=== PATIENT | female | born 1955 | race Asian ===

== ENCOUNTER 2017-08-26 23:09 | Emergency (ER) | payer BC ==
[2017-08-27] MEDS ORDERED: NORMAL SALINE 1000 ML 1,000 ML IV PRN (01:26)
--- NOTE | 2017-08-27 01:27 | ER Document Report ---
ED General - General Chief Complaint: High Blood Sugar Stated Complaint: BLOOD SUGAR PROBLEM Time Seen by Provider: 08/27/17 01:13 Mode of Arrival: Ambulatory Information source: Patient Notes: This is a 61-year-old female with a history of insulin requiring diabetes presenting to the emergency room with weakness, nausea, dizziness. She denies chest pain, abdominal pain. She denies any fever or chills or recent illnesses. Does state that she has had some pain with range of motion of the right shoulder for quite some time but that has not changed. TRAVEL OUTSIDE OF THE [place] IN LAST 30 DAYS: No - HPI Onset: Yesterday Onset/Duration: Gradual Quality of pain: No pain Severity: None Pain Level: Denies Associated symptoms: Nausea. denies: Chills, Diarrhea, Fever, Vomiting, Shortness of breath Exacerbated by: Denies Relieved by: Denies Similar symptoms previously: No Recently seen / treated by doctor: No - Related Data Allergies/Adverse Reactions: No Known Allergies Allergy (Unverified 08/26/17 23:15) Past Medical History - General Information source: Patient - Social History Smoking Status: Never Smoker Cigarette use (# per day): No Chew tobacco use (# tins/day): No Frequency of alcohol use: None Drug Abuse: None Lives with: Family Family History: None Patient has suicidal ideation: No Patient has homicidal ideation: No - Past Medical History Cardiac Medical History: Reports: None Pulmonary Medical History: Reports: None EENT Medical History: Reports: None Neurological Medical History: Reports: None Endocrine Medical History: Reports: Hx Diabetes Mellitus Type 2 Renal/ Medical History: Reports: None Malignancy Medical History: Reports: None GI Medical History: Reports: None Musculoskeltal Medical History: Reports None Skin Medical History: Reports None Psychiatric Medical History: Reports: None Infectious Medical History: Reports: None Surgical Hx: Negative Review of Systems - Review of Systems Constitutional: denies: Chills, Fever EENT: No symptoms reported Cardiovascular: No symptoms reported Respiratory: No symptoms reported Gastrointestinal: See HPI Genitourinary: No symptoms reported Female Genitourinary: No symptoms reported Musculoskeletal: No symptoms reported Skin: No symptoms reported Hematologic/Lymphatic: No symptoms reported Neurological/Psychological: No symptoms reported Physical Exam - Vital signs Vitals: Temp Pulse Resp BP Pulse Ox 97.6 F 69 16 122/84 95 08/26/17 23:26 08/26/17 23:26 08/26/17 23:26 08/26/17 23:26 08/26/17 23:26 Notes: Physical exam: GENERAL: 61-year-old female, alert and oriented 3, no acute distress HEAD: Atraumatic, normocephalic. EYES: Pupils equal round and reactive to light, extraocular movements intact, sclera anicteric, conjunctiva are normal. ENT: TMs normal, nares patent, oropharynx clear without exudates. Moist mucous membranes. NECK: Normal range of motion, supple without obvious mass or JVD. LUNGS: Breath sounds clear to auscultation bilaterally and equal. No wheezes rales or rhonchi. HEART: Regular rate and rhythm without murmurs, rubs or gallops. ABDOMEN: Soft, normoactive bowel sounds. No tenderness to palpation. No guarding, no rebound. No masses appreciated. EXTREMITIES: Normal range of motion, no pitting or edema. No clubbing or cyanosis. NEUROLOGICAL: Cranial nerves II through XII grossly intact. Normal speech, moving all extremities. PSYCH: Normal mood, normal affect. SKIN: Warm, Dry, normal turgor, no rashes or lesions noted. Course - Re-evaluation Re-evalutation: 08/27/17 02:55 Treated with IV fluids. Nausea has improved without the need for antibiotics. - Vital Signs Vital signs: Temp Pulse Resp BP Pulse Ox 97.6 F 69 16 122/84 97 08/26/17 23:26 08/26/17 23:26 08/26/17 23:26 08/26/17 23:26 08/27/17 02:15 - Laboratory Result Diagrams: 08/27/17 02:00 08/27/17 02:00 Laboratory results interpreted by me: 08/26/17 08/27/17 08/27/17 23:20 02:00 02:30 Glucose 281 H POC Glucose 350 H Urine Glucose (UA) >=500 H Ur Leukocyte Esterase SMALL H - EKG Interpretation by Me Rate: Normal Rhythm: NSR - EKG shows normal sinus rhythm with a ventricular rate of 60, no acute ST-T wave changes Discharge - Discharge Clinical Impression: Diabetes Condition: Stable Disposition: HOME, SELF-CARE Additional Instructions: As we discussed, urine test showed a possible early urine infection. We did send a urine culture which will tell us for sure. That usually comes back in 2 days and if it does come back positive for a urine infection, we will call you with a prescription for antibiotics. As far as the anemia studies and the white blood count: They were normal. The kidney function tests, liver function tests and electrolytes were all normal. Sugar was a little elevated at 281 and I would like you to bring a copy of today 's lab work with you when you see the primary care doctor. Rest, drink plenty of fluids, take Zofran for nausea. Return to the emergency room for vomiting, not tolerating fluids, abdominal pain or any concerns or getting worse. Also, I put the number for an orthopedic surgeon for the shoulder pain. Referrals: MILAGRO SMALLS DO [ACTIVE STAFF] - Follow up as needed (This is the number of the orthopedic doctor for the shoulder) ANDRE TO MD [Primary Care Provider] - Follow up in 3-5 days (Bring a copy of today's lab tests with you when you go see primary care doctor)
[2017-08-27] MEDS ORDERED: ONDANSETRON HCL INJ/PF 4 MG/2 ML SDV IV ONE (01:28)
[2017-08-27 02:21] LABS: ABSOLUTE BASOPHILS # (AUTO) 0.1 10^3/uL (0.0-0.2); ABSOLUTE EOSINOPHILS # (AUTO) 0.1 10^3/uL (0.0-0.6); ABSOLUTE LYMPHOCYTES (AUTO) 1.7 10^3/uL (0.5-4.7); ABSOLUTE MONOCYTES (AUTO) 0.3 10^3/uL (0.1-1.4); ABSOLUTE NEUT (AUTO) 5.4 10^3/uL (1.7-8.2); BASOPHILS % (AUTO) 0.7 % (0-2); EOSINOPHILS % (AUTO) 1.3 % (0-6); HEMATOCRIT 38.8 % (36.0-47.0); HEMOGLOBIN 13.4 g/dL (12.0-15.5); LYMPHOCYTES % (AUTO) 22.7 % (13-45); MEAN CORPUSCULAR HEMOGLOBIN 31.4 pg (27.0-33.4); MEAN CORPUSCULAR HGB CONC 34.5 g/dL (32.0-36.0); MEAN CORPUSCULAR VOLUME 91 fl (80-97); MONOCYTES % (AUTO) 4.4 % (3-13); PLATELET COUNT 257 10^3/uL (150-450); RED BLOOD COUNT 4.25 10^6/uL (3.72-5.28); RED CELL DISTRIBUTION WIDTH 11.9 % (11.5-14.0); SEGMENTED NEUTROPHILS % (AUTO) 70.9 % (42-78); TOTAL CELLS COUNTED % (AUTO) 100 %; WHITE BLOOD COUNT 7.6 10^3/uL (4.0-10.5)
[2017-08-27 02:27] LABS: ALANINE AMINOTRANSFERASE 32 U/L (9-52); ALKALINE PHOSPHATASE 70 U/L (38-126); ANION GAP 11 (5-19); ASPARTATE AMINO TRANSFERASE 17 U/L (14-36); BILIRUBIN,DIRECT 0.2 mg/dL (0.0-0.4); BILIRUBIN,TOTAL 0.3 mg/dL (0.2-1.3); BLOOD UREA NITROGEN 15 mg/dL (7-20); CALCIUM 9.7 mg/dL (8.4-10.2); CARBON DIOXIDE 30 mmol/L (22-30); CHLORIDE 103 mmol/L (98-107); CREATINE KINASE 93 U/L (30-135); GLUCOSE 281 mg/dL (75-110); POTASSIUM 4.5 mmol/L (3.6-5.0); SODIUM 143.8 mmol/L (137-145); TOTAL PROTEIN 6.4 g/dL (6.3-8.2)
[2017-08-27 02:38] LABS: CREATINE KINASE MB 1.08 ng/mL (<4.55)
[2017-08-27 02:45] LABS: TROPONIN I < 0.012 ng/mL
[2017-08-27 02:54] LABS: APPEARANCE,URINE CLEAR; BILIRUBIN,URINE NEGATIVE (NEGATIVE); COLOR,URINE STRAW; GLUCOSE, URINE >=500 mg/dL (NEGATIVE); KETONES,URINE NEGATIVE (NEGATIVE); LEUKOCYTE ESTERASE,URINE SMALL (NEGATIVE); NITRITE,URINE NEGATIVE (NEGATIVE); PROTEIN,URINE NEGATIVE (NEGATIVE); URINE SPECIFIC GRAVITY 1.014; UROBILINOGEN,URINE NEGATIVE mg/dL (<2.0)
[2017-08-27] MEDS ORDERED: ONDANSETRON ODT 4 MG TAB (6 TAB/ER DISP) PO PRN (03:38)
[2017-08-27 04:44] VITALS: BP 120/82
--- NOTE | 2017-08-27 07:51 | EKG REPORT ---
SEVERITY:- BORDERLINE ECG - SINUS RHYTHM BORDERLINE INFERIOR Q WAVES : Confirmed by: Asher Araujo MD 27-Aug-2017 07:51:16
== END 2017-08-27 04:35 | disposition home or self-care (01) ==
LOC: ER 23:09
DX: E11.9 Type 2 diabetes mellitus without complications (principal); Z79.4 Long term (current) use of insulin; R53.1 Weakness; R11.0 Nausea; R42 Dizziness and giddiness; M25.511 Pain in right shoulder
CPT/HCPCS: 93005; 99284; 96360; 36415; 87086; 82553; 82962; 82550; 85025; 80053; 81001; 84484; 93010; J7030

== ENCOUNTER 2019-01-16 09:53 | Emergency (ER) | payer BC ==
--- NOTE | 2019-01-16 11:20 | ER Document Report ---
ED General - General Chief Complaint: Foreign Body Stated Complaint: FORIEGN BODY IN THROAT Time Seen by Provider: 01/16/19 11:19 Primary Care Provider: ANDRE TO MD [COMMUNITY BASED STAFF] - Follow up as needed TRAVEL OUTSIDE OF THE [place] IN LAST 30 DAYS: No - HPI Notes: 63y/o presenting to ED for evaluation of foreign body sensation in throat she denies difficulty w/ speech or swallowing she has tried eating bread and digging at her throat w/o relief no fever or chills she at fish last night and thinks she has a fish bone in her throat - Related Data Allergies/Adverse Reactions: No Known Allergies Allergy (Verified 01/16/19 09:54) Past Medical History - Social History Smoking Status: Never Smoker Chew tobacco use (# tins/day): No Frequency of alcohol use: None Drug Abuse: None Family History: None Patient has suicidal ideation: No Patient has homicidal ideation: No Endocrine Medical History: Reports: Hx Diabetes Mellitus Type 2 Renal/ Medical History: Denies: Hx Peritoneal Dialysis Review of Systems - Review of Systems Constitutional: No symptoms reported EENT: Other - foreign body sensation in throat Cardiovascular: No symptoms reported Respiratory: No symptoms reported Gastrointestinal: No symptoms reported Genitourinary: No symptoms reported Female Genitourinary: No symptoms reported Musculoskeletal: No symptoms reported Skin: No symptoms reported Hematologic/Lymphatic: No symptoms reported Neurological/Psychological: No symptoms reported Physical Exam - Vital signs Vitals: Temp Pulse Resp BP Pulse Ox 98.0 F 86 16 117/74 94 01/16/19 10:07 01/16/19 10:07 01/16/19 10:07 01/16/19 10:07 01/16/19 10:07 Interpretation: Normal - General General appearance: Appears well, Alert - HEENT Head: Normocephalic, Atraumatic Eyes: Normal Pupils: PERRL - Respiratory Respiratory status: No respiratory distress Chest status: Nontender Breath sounds: Normal Chest palpation: Normal - Cardiovascular Rhythm: Regular Heart sounds: Normal auscultation Murmur: No - Abdominal Inspection: Normal Distension: No distension Bowel sounds: Normal Tenderness: Nontender Organomegaly: No organomegaly - Back Back: Normal, Nontender - Extremities General upper extremity: Normal inspection, Nontender, Normal color, Normal ROM, Normal temperature General lower extremity: Normal inspection, Nontender, Normal color, Normal ROM, Normal temperature, Normal weight bearing. No: Estela's sign - Neurological Neuro grossly intact: Yes Cognition: Normal Orientation: AAOx4 Marlon Coma Scale Eye Opening: Spontaneous Marlon Coma Scale Verbal: Oriented Marlon Coma Scale Motor: Obeys Commands [place] Coma Scale Total: 15 Speech: Normal Motor strength normal: LUE, RUE, LLE, RLE Sensory: Normal - Psychological Associated symptoms: Normal affect, Normal mood - Skin Skin Temperature: Warm Skin Moisture: Dry Skin Color: Normal Course - Re-evaluation Re-evalutation: 01/16/19 14:[address] w/o FB patient states it has gone down while in ED discharge w pcp follow up consider ENT follow up if symptoms recur - Vital Signs Vital signs: Temp Pulse Resp BP Pulse Ox 98.0 F 86 16 117/74 94 01/16/19 10:07 01/16/19 10:07 01/16/19 10:07 01/16/19 10:07 01/16/19 10:07 - Laboratory Result Diagrams: 01/16/19 12:05 01/16/19 12:05 Laboratory results interpreted by me: 01/16/19 12:05 Glucose 229 H Discharge - Discharge Clinical Impression: Foreign body sensation in throat Condition: Stable Disposition: HOME, SELF-CARE Instructions: Sore Throat ([facility]) Additional Instructions: follow up with ENT specialist if your symptoms return follow up with primary doctor for follow up return to the ED with worsening Referrals: ANDRE TO MD [COMMUNITY BASED STAFF] - Follow up as needed
[2019-01-16 12:43] LABS: ABSOLUTE EOSINOPHILS # (AUTO) 0.1 10^3/uL (0.0-0.6); ABSOLUTE LYMPHOCYTES (AUTO) 1.3 10^3/uL (0.5-4.7); ABSOLUTE MONOCYTES (AUTO) 0.6 10^3/uL (0.1-1.4); ABSOLUTE NEUT (AUTO) 6.9 10^3/uL (1.7-8.2); BASOPHILS % (AUTO) 0.5 % (0-2); EOSINOPHILS % (AUTO) 1.1 % (0-6); HEMATOCRIT 38.9 % (36.0-47.0); HEMOGLOBIN 13.4 g/dL (12.0-15.5); LYMPHOCYTES % (AUTO) 14.8 % (13-45); MEAN CORPUSCULAR HEMOGLOBIN 31.3 pg (27.0-33.4); MEAN CORPUSCULAR HGB CONC 34.5 g/dL (32.0-36.0); MEAN CORPUSCULAR VOLUME 91 fl (80-97); MONOCYTES % (AUTO) 6.6 % (3-13); PLATELET COUNT 238 10^3/uL (150-450); RED BLOOD COUNT 4.29 10^6/uL (3.72-5.28); RED CELL DISTRIBUTION WIDTH 12.1 % (11.5-14.0); TOTAL CELLS COUNTED % (AUTO) 100 %
[2019-01-16 12:53] LABS: ANION GAP 10 (5-19); BLOOD UREA NITROGEN 16 mg/dL (7-20); CALCIUM 9.5 mg/dL (8.4-10.2); CARBON DIOXIDE 29 mmol/L (22-30); CHLORIDE 101 mmol/L (98-107); GLUCOSE 229 mg/dL (75-110); POTASSIUM 3.9 mmol/L (3.6-5.0)
--- NOTE | 2019-01-16 13:33 | RADIOLOGY REPORT (SQ) ---
EXAM DESCRIPTION: CT SOFT TISSUE NECK WITHOUT COMPLETED DATE/TIME: 01/16/2019 1:18 pm REASON FOR STUDY: foreign body sensation COMPARISON: None. TECHNIQUE: Noncontrast scanning from skull base through lung apices with review of bone, soft tissue and lung windows. Reconstructed coronal and sagittal MPR images reviewed. All images stored on PAC S. All CT scanners at this facility use dose modulation, iterative reconstruction, and/or weight based d osing when appropriate to reduce radiation dose to as low as reasonably achievable (ALARA). [facility]: Dose Right [facility]: CareDose [facility]: Dose Right [facility]: Teradose 4D [facility]: [employer] RADIATION DOSE: CT Rad equipment meets quality standard of care and radiation dose reduction techniq ues were employed. CTDIvol: 9.7 mGy. DLP: 303 mGy-cm. mGy. LIMITATIONS: None. FINDINGS: SKULL BASE: Intact. MAJOR SALIVARY GLANDS: No solid or cystic masses. No inflammatory changes. LYMPHADENOPATHY: There are multiple small cervical nodes. There are small submandibular nodes, sligh tly more prominent on the left than the right. MUCOSAL MASSES OR ASYMMETRY: No mucosal masses or asymmetry. LARYNX/CORDS: No abnormal findings. LUNG APICES: Clear. BONES: Intact. THYROID: Normal size. No masses. PARANASAL SINUSES: Clear. OTHER: No other significant finding. IMPRESSION: No acute finding in the soft tissues of the neck. No radiopaque foreign body is appreci ated. There are multiple small nodes including some submandibular nodes that are slightly more promi nent on the left than the right. TECHNICAL DOCUMENTATION: JOB ID: [id number] Quality ID # [id number]: Final reports with documentation of one or more dose reduction techniques (e.g., Au tomated exposure control, adjustment of the mA and/or kV according to patient size, use of iterative reconstruction technique) 2010 [employer]- All Rights Reserved Reading location - IP/workstation name: [email or web address]
[2019-01-16] MEDS ORDERED: MAG HYDROX/AL HYDROX/SIMETH SUSP 30 ML UDCUP PO ONE (13:45)
[2019-01-16] MEDS ORDERED: LIDOCAINE 2% VISCOUS SOLN 20 ML UDCUP PO ONE (13:45)
[2019-01-16 14:32] VITALS: BP 127/76
== END 2019-01-16 14:32 | disposition home or self-care (01) ==
LOC: ER 09:53
DX: R09.89 Other specified symptoms and signs involving the circulatory and respiratory systems (principal); E11.9 Type 2 diabetes mellitus without complications
CPT/HCPCS: 36415; 70490; 80048; 85025; 99284